=== PATIENT | female | born 1970 | race Caucasian/White ===

== ENCOUNTER 2016-10-30 16:43 | Outpatient (CLI) | payer MEDICARE, MEDICAID | END 2016-10-30 16:44 | disposition critical access hospital (66) | LOC: EMS 16:43 | PROVIDERS: ATTEND Surgery | DX: R10.9 Unspecified abdominal pain (principal); W19.XXXA Unspecified fall, initial encounter; Y93.01 Activity, walking, marching and hiking; Y92.832 Beach as the place of occurrence of the external cause | CPT/HCPCS: A0425; A0429 ==

== ENCOUNTER 2016-10-30 16:55 | Emergency (ER) | payer MEDICARE, MEDICAID ==
[2016-10-30] MEDS ORDERED: ONDANSETRON 4 MG/2 ML VIAL IVP STA (17:03)
[2016-10-30] MEDS ORDERED: HYDROmorphone 1 MG/ML SYRINGE IVP STA (17:03)
[2016-10-30] MEDS ORDERED: ONDANSETRON 4 MG/2 ML VIAL ONE (17:09)
[2016-10-30] MEDS ORDERED: HYDROmorphone 1 MG/ML SYRINGE ONE (17:09)
[2016-10-30 17:14] LABS: BASOPHILS # (AUTO) 0.1 10^3/uL (0.0-0.1); BASOPHILS % (AUTO) 0.7 %; EOSINOPHILS # (AUTO) 0.2 10^3/uL (0.0-0.7); EOSINOPHILS % (AUTO) 2.4 %; HCT - HEMATOCRIT 31.4 % (37.0-47.0); HGB - HEMOGLOBIN 10.3 g/dL (12.0-16.0); LYMPHOCYTES # (AUTO) 2.2 10^3/uL (1.5-3.5); LYMPHOCYTES % (AUTO) 24.1 %; MEAN CORPUSCULAR HEMOGLOBIN 27.7 pg (27.0-31.0); MEAN CORPUSCULAR HGB CONC 32.7 g/dL (32.0-36.0); MEAN CORPUSCULAR VOLUME 84.7 fL (81.0-99.0); MEAN PLATELET VOLUME 7.7 fL (7.9-10.8); MONOCYTES # (AUTO) 0.8 10^3/uL (0.0-1.0); MONOCYTES % (AUTO) 8.1 %; NEUTROPHILS % (AUTO) 64.7 %; RED BLOOD COUNT 3.71 10^6/uL (4.20-5.40); RED CELL DISTRIBUTION WIDTH 16.5 % (12.0-15.0); UNCORRECTED WHITE BLOOD COUNT 9.3 x10^3/uL; WHITE BLOOD COUNT 9.3 x10^3/uL (4.8-10.8)
[2016-10-30 17:27] LABS: ALBUMIN/GLOBULIN RATIO 1.3 (1.0-2.2); BILIRUBIN,TOTAL 0.3 mg/dL (0.2-1.0); CALCIUM 8.8 mg/dL (8.5-10.3); CREATININE 0.8 mg/dL (0.4-1.0); POTASSIUM 3.7 mmol/L (3.5-5.0)
[2016-10-30] MEDS ORDERED: IOPAMIDOL-300 100 ML VIAL IVP ONE (17:32)
--- NOTE | 2016-10-30 17:51 | CT Preliminary Report ---
Exam: CT Abdomen/Pelvis W/ IMPRESSION: 1. Right L1 and L2 transverse process fractures. 2. No evidence of solid organ injury or hematoma. 3. No other significant abnormality. [facility] SITE ID: [id number]
--- NOTE | 2016-10-30 17:53 | CT Report ---
EXAM: CT ABDOMEN AND PELVIS EXAM DATE: 10/30/2016 05:33 PM. CLINICAL HISTORY: Fall, R flank/upper pelvic pain. COMPARISONS: None. TECHNIQUE: Routine helical CT imaging was performed through the abdomen and pelvis. IV contrast: 100 cc Isovue-300 IV. Enteric contrast: No. Reconstructions: Coronal and sagittal. In accordance with CT protocol optimization, one or more of the following dose reduction techniques w ere utilized for this exam: automated exposure control, adjustment of mA and/or KV based on patient s ize, or use of iterative reconstructive technique. FINDINGS: Lung Bases: Unremarkable. Liver: Normal. No masses. Gallbladder/Bile Ducts: Unremarkable. Spleen: Normal. Pancreas: Normal. Adrenal Glands: Normal. Kidneys: Normal. No masses or hydronephrosis. Peritoneal Cavity/Bowel: Normal. No free fluid, free air or adenopathy. No masses or acute inflammato ry process. No positive evidence of acute appendicitis. Pelvic Organs: There is a cystic hypodense structure in the left adnexa measuring 2.4 cm in diameter consistent with a left ovarian follicle or cyst. Uterus and urinary bladder appear unremarkable. Vasculature: No aneurysms or other significant abnormality. Bones: There are 4 lumbar type vertebral bodies. There are fractures of the right L1 and L2 transvers e process. Other: None. IMPRESSION: 1. Right L1 and L2 transverse process fractures. 2. No evidence of solid organ injury or hematoma. 3. No other significant abnormality. [facility] Referring Provider Line: [phone] SITE ID: [id number]
--- NOTE | 2016-10-30 18:22 | ED Physician Documentation ---
PD HPI Fall - Stated complaint Stated Complaint: FALL - Chief complaint Chief Complaint: Trauma Ch/Bk - History obtained from History obtained from: Patient, Family - History of Present Illness Mechanism of injury: Tripped, Slipped Fall distance: Standing position Where injury occurred: Park Timing - onset: Today Injury(ies) location: Other (R flank) Pain level max: 10 Pain level now: 10 Quality of pain: Pain, Aching, Dull Associated symptoms: No: LOC, AMS, Amnesia, Seizures, Ear drainage, Nasal drainage, Neck pain, Weakness, Paresthesias, Dyspnea, Nausea / vomiting, Hematemesis, Abdominal distension Symptoms improve with: Rest Worsens with: Movement, Palpation Recently seen: Not recently seen Review of Systems Ten Systems: 10 systems reviewed and negative Constitutional: denies: Fever, Chills Ears: denies: Ear pain Nose: denies: Rhinorrhea / runny nose, Congestion Throat: denies: Sore throat Cardiac: denies: Chest pain / pressure Respiratory: denies: Cough GI: denies: Vomiting, Diarrhea : denies: Now EGA Skin: denies: Rash Musculoskeletal: reports: Back pain (chronic low back pain). denies: Neck pain Neurologic: denies: Focal weakness, Numbness, Confused, Altered mental status PD PAST MEDICAL HISTORY - Past Medical History Past Medical History: Yes Musculoskeletal: Chronic back pain - Present Medications Home Medications: Ambulatory Orders Medication Instructions Recorded Confirmed Baclofen [Lioresal] 10 mg PO TID PRN #14 tablet 10/30/16 Oxycodone HCl/Acetaminophen 1 - 2 each PO Q6H PRN #20 tablet 10/30/16 [Percocet 5-325 mg Tablet] - Allergies Allergies/Adverse Reactions: Allergies Allergy/AdvReac Type Severity Reaction Status Date / Time acetaminophen AdvReac Rash Verified 10/30/16 17:07 [From Darvocet-N] cyclobenzaprine HCl * AdvReac Nausea Verified 10/30/16 18:35 [From Flexeril] ibuprofen [From Motrin] AdvReac Nausea Verified 10/30/16 17:07 penicillin G AdvReac Nausea Verified 10/30/16 17:07 Penicillins AdvReac Cramps Verified 10/30/16 17:07 propoxyphene napsylate * AdvReac Rash Verified 10/30/16 17:07 [From Darvocet-N] tramadol AdvReac Rash Verified 10/30/16 17:07 asprin AdvReac Rash Uncoded 10/30/16 17:08 - Living Situation Living Situation: reports: With family Living Arrangement: reports: At home - Social History Does the pt smoke?: No Smoking Status: Never smoker Does the pt have substance abuse?: No - Family History Family history: reports: Non contributory PD ED PE NORMAL - Vitals Vital signs reviewed: Yes - General General: Alert and oriented X 3, No acute distress, Well developed/nourished - HEENT HEENT: Atraumatic, PERRL, Moist mucous membranes - Neck Neck: Supple, no meningeal sign - Cardiac Cardiac: RRR, Strong equal pulses - Respiratory Respiratory: No respiratory distress, Clear bilaterally - Abdomen Abdomen: Soft, Non tender, Non distended - Back Back: Other (TTP R lumbar paraspinal and flank. ) - Derm Derm: Warm and dry, No rash - Extremities Extremities: Other (L forearm - ecchymosis and swelling to the proximal ulna . NVI. stable pelvis. 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, No motor deficit, No sensory deficit, Normal speech - Psych Psych: Normal mood, Normal affect Results - Vitals Vitals: Vital Signs - 24 hr 10/30/16 10/30/16 10/30/16 16:59 17:50 20:02 Temperature 36.9 C Heart Rate 92 91 86 Respiratory 16 16 18 Rate Blood Pressure 138/88 H 135/72 H 127/73 O2 Saturation 99 97 97 Oxygen O2 Source Room air - Labs Labs: Laboratory Tests 10/30/16 10/30/16 17:08 17:08 WBC 9.3 RBC 3.71 L Hgb 10.3 L Hct 31.4 L MCV 84.7 MCH 27.7 MCHC 32.7 RDW 16.5 H Plt Count 288 MPV 7.7 L Neut # 6.0 Lymph # 2.2 Forest # 0.8 Eos # 0.2 Baso # 0.1 Absolute Nucleated RBC 0.00 Nucleated RBCs 0.0 Sodium 139 Potassium 3.7 Chloride 107 Carbon Dioxide 24 Anion Gap 8.0 BUN 12 Creatinine 0.8 Estimated GFR (MDRD) 77 L Glucose 123 H Calcium 8.8 Total Bilirubin 0.3 AST 21 ALT 18 Alkaline Phosphatase 93 Total Protein 7.0 Albumin 4.0 Globulin 3.0 Albumin/Globulin Ratio 1.3 Lipase 50 - Rads (name of study) CT abd/pelvis Radiology: Prelim report reviewed, EMP read contemporaneously, See rad report ( Right L1 and L2 transverse process fractures. No evidence of solid organ injury or hematoma. No other significant abnormality. ) R forearm Radiology: Prelim report reviewed, EMP read contemporaneously, See rad report ( Normal forearm radiography. ) PD MEDICAL DECISION MAKING - ED course Complexity details: reviewed results, re-evaluated patient, considered differential, d/w patient, d/w family ED course: Patient is a 46-year-old female who suffered a slip and fall today, found to have a right L1 and L2 transverse process fractures. These are stable fractures. No neurological deficits. No acute findings on radiographs of the right forearm. Ambulating well. Patient refuses a TLSO brace here. States that she has a back brace at home that she will wear. Pain well controlled. No other acute injuries. Patient and family counseled regarding signs and symptoms for which I believe and urgent re-evaluation would be necessary. Patient with good understanding of and agreement to plan and is comfortable going home at this time This document was made in part using voice recognition software. While efforts are made to proofread this document, sound alike and grammatical errors may occur. Departure - Departure Disposition: 01 Home, Self Care Clinical Impression: Lumbar transverse process fracture Qualifiers: Encounter type: initial encounter Fracture type: closed Qualified Code(s): S32.009A - Unspecified fracture of unspecified lumbar vertebra, initial encounter for closed fracture Condition: Good Instructions: ED Fx Transverse Spinous Process Follow-Up: your,doctor in 1 week [Other] Prescriptions: Baclofen [Lioresal] 10 mg PO TID PRN #14 tablet PRN Reason: muscle spasm Oxycodone HCl/Acetaminophen [Percocet 5-325 mg Tablet] 1 - 2 each PO Q6H PRN # 20 tablet PRN Reason: pain Comments: Return if you worsen. This will take several weeks to heal. Do not drink alcohol or drive while on narcotic pain medicine. Note that many narcotic pain relievers also contain tylenol/acetaminophen. Please ensure that your total dose of acetaminophen from all sources does not exceed 3 grams (3000mg) per day. You may constipated on this medication, take a stool softener such as "Colace" twice a day while you are on it. Also recommend a sovw-lrl-lzzohyh laxative such as senna or MiraLAX any day that you do not have a bowel movement. If you received narcotic pain medication in the emergency department, do not drive or operate machinery for the next 24 hours. Discharge Date/Time: 10/30/16 20:26
[2016-10-30] MEDS ORDERED: oxyCOD/ACETAMIN 5 MG/325 MG TABLET PO STA (18:25)
[2016-10-30] MEDS ORDERED: oxyCOD/ACETAMIN 5 MG/325 MG TABLET PO ONE (18:30)
--- NOTE | 2016-10-30 19:37 | XRAY Preliminary Report ---
Exam: XR Forearm RT IMPRESSION: Normal forearm radiography. [facility] SITE ID: [id number]
--- NOTE | 2016-10-30 19:40 | XRAY Report ---
EXAM: RIGHT FOREARM RADIOGRAPHY EXAM DATE: 10/30/2016 07:23 PM. CLINICAL HISTORY: Forearm pain post fall. COMPARISON: None. TECHNIQUE: 2 views. FINDINGS: Bones: Normal. No fractures or bone lesions. Joints: Normal. No effusions or subluxations in the visualized wrist or elbow joints. Soft Tissues: Normal. No soft tissue swelling. IMPRESSION: Normal forearm radiography. [facility] Referring Provider Line: [phone] SITE ID: [id number]
[2016-10-30] MEDS ORDERED: oxyCODONE/ACET 5/325 Prepack 4 PO STA (20:13)
[2016-10-30] MEDS ORDERED: HYDROcod/ACET 5/325 Prepack 6 PO ONE (20:15)
[2016-10-30 22:02] VITALS: BP 127/73
== END 2016-10-30 20:26 | disposition home or self-care (01) ==
LOC: ED 16:55
DX: S32.019A Unspecified fracture of first lumbar vertebra, initial encounter for closed fracture (principal); S32.029A Unspecified fracture of second lumbar vertebra, initial encounter for closed fracture; W01.0XXA Fall on same level from slipping, tripping and stumbling without subsequent striking against object, initial encounter
CPT/HCPCS: 36415; 73090; 74177; 80053; 83690; 85025; 96374; 96375; 99284; A9270; J1170; Q9967; 81001; 81003; 81025; 87086